=== PATIENT | female | born 1960 | race Caucasian/White ===

== ENCOUNTER → 2023-05-23 08:39 | Outpatient (REF) | payer OTHER, SELFPAY | LOC: RAD 08:39 | PROVIDERS: ATTENDING PHYSICIAN Family Medicine Geriatric Medicine; FAMILY PHYSICIAN Family Medicine | DX: Z85.3 Personal history of malignant neoplasm of breast (principal); Z12.39 Encounter for other screening for malignant neoplasm of breast; Z79.811 Long term (current) use of aromatase inhibitors | CPT/HCPCS: 77080 ==

== ENCOUNTER → 2023-12-14 16:11 | Outpatient (REF) | payer OTHER, SELFPAY | LOC: RAD 16:11 | PROVIDERS: ATTENDING PHYSICIAN Physician Assistant Medical | DX: M54.50 Low back pain, unspecified (principal); M54.6 Pain in thoracic spine | CPT/HCPCS: 72072; 72110 ==

== ENCOUNTER → 2023-12-25 14:36 | Outpatient (REF) | payer OTHER, SELFPAY | LOC: WDC 14:36 | PROVIDERS: ATTENDING PHYSICIAN Family Medicine Geriatric Medicine; FAMILY PHYSICIAN Internal Medicine Hematology & Oncology | DX: Z12.31 Encounter for screening mammogram for malignant neoplasm of breast (principal) | CPT/HCPCS: 77063; 77067 ==

== ENCOUNTER → 2024-01-16 09:39 | Outpatient (REF) | payer OTHER, SELFPAY | LOC: EMG 09:39 | PROVIDERS: ATTENDING PHYSICIAN Orthopaedic Surgery; FAMILY PHYSICIAN Physician Assistant Medical | DX: R20.0 Anesthesia of skin (principal) | CPT/HCPCS: 95886; 95911 ==

== ENCOUNTER 2024-02-01 06:22 | Day surgery (SDC) | payer OTHER, SELFPAY | END 2024-02-01 13:09 | disposition home or self-care (01) | LOC: GI 06:22 | PROVIDERS: ATTENDING PHYSICIAN Internal Medicine Gastroenterology | DX: Z12.11 Encounter for screening for malignant neoplasm of colon (principal); K55.20 Angiodysplasia of colon without hemorrhage; K57.30 Diverticulosis of large intestine without perforation or abscess without bleeding; K64.8 Other hemorrhoids | CPT/HCPCS: G0121 ==

== ENCOUNTER → 2024-04-22 15:01 | Outpatient (REF) | payer OTHER, SELFPAY | LOC: WDC 15:01 | PROVIDERS: ATTENDING PHYSICIAN Family Medicine Geriatric Medicine; FAMILY PHYSICIAN Physician Assistant Medical | DX: R92.333 Mammographic heterogeneous density, bilateral breasts (principal) | CPT/HCPCS: 76641 ==

== ENCOUNTER 2024-09-24 02:40 | Emergency (ER) | payer OTHER, SELFPAY ==
[2024-09-24 02:48] VITALS: BP 155/88
[2024-09-24 03:31] LABS: Hematocrit 39.4 % (37.0-47.0); Hemoglobin 13.6 g/dL (12.0-16.0); Mean Corp Hgb Conc. 34.5 g/dL (33.0-37.0); Mean Corpuscular Volume 89.3 fL (81.0-99.0); Nucleated Red Blood Cells % 0 %; Platelet Count 193 10^3/uL (130-400); Red Cell Dist. Width 12.9 % (11.5-14.5)
[2024-09-24 03:56] LABS: ALT (SGPT) 28 U/L (0-35); AST (SGOT) 18 U/L (14-36); Albumin 4.2 g/dl (3.5-5.0); Alkaline Phosphatase 79 U/L (38-126); Blood Urea Nitrogen 21 mg/dl (7-17); Calcium 9.1 mg/dl (8.4-10.2); Carbon Dioxide 25 mmol/L (22-30); Chloride 106 mmol/L (98-107); Glucose 104 mg/dl (70-99); Potassium 3.7 mmol/L (3.5-5.1); Sodium 138 mmol/L (135-145); Total Protein 6.5 g/dl (6.3-8.2); eGFR > 60.00
[2024-09-24 04:05] LABS: Troponin I < 0.012 ng/ml
[2024-09-24 05:46] VITALS: BP 135/58
[2024-09-24 05:47] VITALS: BMI 37.7
[2024-09-24 06:00] VITALS: BP 134/63
--- NOTE | 2024-09-24 06:53 | ED.GENMED ---
History of Present Illness
General
Chief Complaint: Cardiac Symptoms
Source: patient
Exam Limitations: none
Time Seen by Provider: 09/24/24 06:29
Nursing documentation reviewed up to this point in time: agreed with
History of Present Illness
History of Present Illness:
Patient is a 64-year-old female with history of high cholesterol, presents to the ER for evaluation. She woke up with some cramping in her feet around 1:30 in the morning and then noticed' a sensation in her right shoulder and felt that her right
shoulder is a little stiff. She had no actual chest pain or pain to her shoulder joint. She had no associated shortness of breath. Because of this discomfort she was anxious and wanted to make sure this was not her heart. She has no cardiac
history. She does report she is under a lot of stress recently going through divorce at that with the divorce or yesterday. She also reports she lifted weights yesterday into the upper body but denies any injury at that time.
Currently she is asymptomatic.
Phy Exam
General Physical Exam
General Presentation: well appearing
General age: appears stated age
General Skin: warm and dry
General Habitus: normal
General Mental: alert
General Hydration: appears well hydrated
Cardiovascular Exam
Cardiovascular Exam: regular rate/rhythm, no murmur and normal peripheral pulses
Pulmonary Exam
Pulmonary Exam: lungs clear and no respiratory distress
Neurological Exam
Neurological Exam: alert and oriented x3
Musculoskeletal Exam
Musculoskeletal Exam: full ROM
Skin Exam
Skin Exam: normal color and warm/dry
Psychiatric Exam
Psychiatric Exam: normal mood/affect
Course
Orders/Labs/Results
Orders:
Orders
09/24/24 02:52
ECG [Electrocardiogram (*1)] Urgent
Reason for Study: Shortness of Breath
09/24/24 02:53
EKG- Treatment ONCE
09/24/24 03:10
Complete Blood Count/With Diff Urgent
Comprehensive Metabolic Panel Urgent
Troponin I Urgent
09/24/24 06:53
Chest [CR Chest - 2 Views ] Urgent
Comment:
Reason For Exam: cp
09/24/24 06:54
0.9% Sodium Chloride 1000 ml [Nss] 1,000 ml IV BOLUS
09/24/24 06:55
Electrocardiogram (*1) Urgent
Reason for Study: Palpitations
EKG- Treatment ONCE
09/24/24 07:29
Troponin I Urgent
Abnormal Lab Results
09/24/24
03:10
WBC 4.6 L 10^3/uL
(4.8-10.8)
MPV 10.7 H fL
(7.4-10.4)
Absolute Lymphs (auto) 1.0 L 10^3/uL
(1.2-3.4)
Monocytes % 14.0 H %
(1.7-9.3)
BUN 21 H mg/dl
(7-17)
Glucose 104 H mg/dl
(70-99)
09/24/24 03:10
09/24/24 03:10
Vital Signs
Initial and Last Documented VS:
Initial Vital Signs
Temp Pulse Resp BP Pulse Ox
98.2 F 80 24 155/88 96
09/24/24 02:48 09/24/24 02:48 09/24/24 02:48 09/24/24 02:48 09/24/24 02:48
Last Documented Vital Signs
Temp Pulse Resp BP Pulse Ox
98.7 F 72 17 136/77 96
09/24/24 05:51 09/24/24 09:30 09/24/24 09:30 09/24/24 09:01 09/24/24 09:15
MDM/Problems Addressed
Differential Diagnosis Includes:
Not limited to muscle cramps, ACS
MDM/Problems Addressed:
Patient well-appearing in no acute distress symptoms are not classic ACS and patient has no history of cardiac disease. Mild high cholesterol. She is under a lot of stress going through a separation. She is well-appearing and has not had any
symptoms here in the ER.
She has had 2 negative cardiac troponins no acute findings on EKG. Normal chest x-ray. Vital signs are stable. Stable for discharge home with outpatient follow-up placed on chest pain hotline
Blood pressure taken by myself prior to discharge 136/77 heart rate 77
*Radiology
Radiology exam reviewed: radiology read reviewed
*Pulse Oximetry
SaO2: 95
Oxygen Mode of Delivery: Room air
Patient hypoxic: no
*EKG
Interpreted by ED Provider?: Yes
Interpretation: normal
Comparison EKG: no changes
Heart Rate: 67
Rate: normal
Rhythm: sinus
Ischemia: other (Repeat EKG unchanged)
*Critical Care Note
Total Time (30-74mins, 75-104mins- exclusive of procedures): Not Applicable
ED Attending Note
-
Portions of this chart may have been created with voice recognition software.� Occasional wrong word or��sound alike� substitutions may have occurred due to the inherent limitations of voice recognition software.
Discharge Plan
Departure
Patient Disposition: Home (Routine Discharge)
Date of Disposition: 09/24/24
Time of Disposition: 08:57
Patient with high blood pressure during this ER visit?: No
Condition: Fair
Covid-19: Not Applicable
Discharge Problem:
Chest pain
Instructions: Chest Pain (DC), Chest Pain CBC Follow Up
Prescriptions:
No Action
B Complex
1 tab PO DAILY
Fish Oil Capsule
1 cap PO DAILY
Cbd Oil
1 ea sublingual DAILY PRN (Reason: anxiety)
Probiotic
1 tab PO DAILY
calcium
1 tab PO DAILY
magnesium citrate
1 tab PO DAILY
Referrals:
Lele Aguiar MD [Active, Cardiology]
Patricia Adair PA [Family Provider, Family Practice]
Activity Restrictions/Additional Instructions:
As discussed follow-up with cardiology. You will be placed on the chest pain hotline which means you will receive a phone call in the next several days to follow-up with cardiology.
Return if any worsening of symptoms
Interventions
Interventions:
*Risk Screen - Suicide Last Done: 09/24/24 02:48
*General Assessment Last Done: 09/24/24 05:48
*Neglect/Abuse Screening Last Done: 09/24/24 02:48
*ED- Fall Risk Assessment Last Done: 09/24/24 05:48
*ED COVID-19 Vaccine History Last Done: 09/24/24 05:48
*Nursing Disposition Last Done: 09/24/24 10:15
ED-Skin Assessment Last Done: 09/24/24 05:50
ED-Peripheral Vascular Assessment Last Done: 09/24/24 05:50
ED- Pulmonary Assessment Last Done: 09/24/24 05:48
ED-Musculoskeletal Assessment Last Done: 09/24/24 05:48
ED- Cardiac Assessment Last Done: 09/24/24 05:48
Discharge Date and Time
Discharge Date/Time: 09/24/24 09:50
Print Language: ROMANIAN
[2024-09-24 07:00] VITALS: BP 95/47
[2024-09-24] MEDS: NSS 1000 IV (07:30)
[2024-09-24 08:19] LABS: Troponin I < 0.012 ng/ml
[2024-09-24 09:01] VITALS: BP 136/77
== END 2024-09-24 09:50 | disposition home or self-care (01) ==
LOC: EMR 02:40
PROVIDERS: Nurse Practitioner; Student in an Organized Health Care Education/Training Program; EMERGENCY PHYSICIAN Student in an Organized Health Care Education/Training Program; FAMILY PHYSICIAN Physician Assistant Medical
DX: R07.89 Other chest pain (principal)
CPT/HCPCS: 99283; 96360; 71046; 80053; 84484; 85025; 93005

== ENCOUNTER → 2024-11-11 07:52 | Outpatient (REF) | payer OTHER, SELFPAY | LOC: HWRCS 07:52 | PROVIDERS: ATTENDING PHYSICIAN Internal Medicine Cardiovascular Disease; FAMILY PHYSICIAN Physician Assistant Medical | DX: R07.89 Other chest pain (principal) | CPT/HCPCS: 78452; 93017; A9500 ==

== ENCOUNTER → 2024-12-25 14:40 | Outpatient (REF) | payer OTHER, SELFPAY | LOC: WDC 14:40 | PROVIDERS: ATTENDING PHYSICIAN Family Medicine Geriatric Medicine; FAMILY PHYSICIAN Physician Assistant Medical | DX: Z12.31 Encounter for screening mammogram for malignant neoplasm of breast (principal) | CPT/HCPCS: 77063; 77067 ==